=== PATIENT | female | born 1990 | race Caucasian/White ===

== ENCOUNTER 2023-05-09 08:16 | Outpatient (CLI) | payer BC, SELFPAY ==
--- NOTE | 2023-05-09 08:15 | CRLHL7_ITS ---
For Patients: As a result of the Century Cures Act, medical imaging exams and procedure reports are released immediately into your electronic medical record. You may view this report before your referring provider. If you have questions, please contact your health care provider. INDICATION: First trimester scan, establish dates. COMPARISON: None. TECHNIQUE: Real-time vizcarra-scale imaging of the pelvis was performed. FINDINGS: Sonographic imaging demonstrates a single living intrauterine gestation. The embryo demonstrates a regular cardiac rate measuring 171 beats per minute. The embryo`s crown-rump length measurement of 3.0 cm corresponds to a gestational age of 9 weeks 6 days with a sonographic due date of 12/06/2023. There is a normal-appearing yolk sac. There are no gross abnormalities noted within the embryo at this early state of development. The gestational sac has a normal appearance. There is no evidence of a perigestational hemorrhage. The amount of fluid within the sac appears appropriate for gestational age. The cervix is closed. The myometrium appears normal. The ovaries are of normal size. Corpus luteal cyst right ovary. There are no suspicious fluid collections noted in the cul-de-sac. IMPRESSION: Normal first trimester OB ultrasound exam. Gestational age calculated at 9 weeks 6 days with a sonographic due date of 12/06/2023. Dictated by Reuben Dumont MD @ 05/09/2023 10:35:18 AM (Electronically Signed)
== END 2023-05-09 08:17 | disposition home or self-care (01) ==
LOC: US 08:16
PROVIDERS: Visit Provider Physician Assistant
DX: Z34.91 Encounter for supervision of normal pregnancy, unspecified, first trimester (principal); Z3A.09 9 weeks gestation of pregnancy
CPT/HCPCS: 76817; 86592; 86703; 86704; 86706; 86762; 86787; 86803; 86850; 86900; 86901; 87086; 87340; 87491; 87591

== ENCOUNTER 2023-07-25 12:48 | Outpatient (CLI) | payer BC, SELFPAY ==
--- NOTE | 2023-07-25 13:00 | US_ITS ---
Patient: CLAIRE SEGUNDO Facility:?[facility] Patient ID:?[id number] Site Patient ID:?[id number]. Site :?[id number] Study:?US-OB Pelvis BFAS-07/25/2023 2:23:04 PM Ordering Physician:ROXIE MICHEL Final Report: INDICATION: Blighted ovum TECHNIQUE: Stretch transvaginal scanning was performed to optimally evaluate the IUP and adnexa. Ovarian blood flow was evaluated with color-flow and pulsed Doppler. COMPARISON: None. FINDINGS: An intrauterine gestational sac is demonstrated but no pole or yolk sac is demonstrated. Gestational age is 10 weeks 3 days by LMP and 7 weeks by today`s mean sac size. A 1.2 x 1.0 x 0.3 cm subchorionic hemorrhage is noted The ovaries are normal in size and shape. The right ovary measures 3.4 x 2.4 x 1.9 cm and the left 3.2 x 2.0 x 1.4 cm. Ovarian blood flow is demonstrated with color-flow and pulsed Doppler. No adnexal mass or free fluid is apparent. IMPRESSION: Blighted ovum Dictated by Oneal Shaikh MD @ 07/26/2023 6:17:36 AM ----- ADDENDUM ----- CORRECTION: The initial report belongs to a different patient and was inadvertently submitted to this patient`s chart. INDICATION: survey. TECHNIQUE: Conventional transabdominal two-dimensional grayscale ultrasound examination. COMPARISON: None. FINDINGS: There is a living fetus with gestational age of 20 weeks 6 days by LMP and 21 weeks 1 day by today`s measurements. EDC based on LMP is 12/06/2023. BPD: 5.1 cm, 21 weeks 4 days Head circumference: 18.4 cm, 20 weeks 5 days Abdominal circumference: 17.2 cm, 22 weeks 1 day Femur length: 3.4 cm, 20 weeks 4 days The weight is estimated at 419 grams, the 73rd percentile. The heart rate is measured at 144 beats per minute and the rhythm appears regular. The head and spine are grossly intact. No gross facial abnormality is evident. The upper lip is intact. Four cardiac chambers are demonstrated. The heart and stomach appear to be on the same side. The diaphragm is intact. Two kidneys and a bladder are demonstrated. The cord insertion is normal and three cord vessels are noted. Four extremities are demonstrated. The amniotic fluid volume is within normal limits. The placenta is posterior with no evidence of previa. The cervical length is normal at 4.3 cm. IMPRESSION: 1. Living fetus with gestational age of 20 weeks 6 days by LMP and 21 weeks 1 day by today`s measurements. EDC based on LMP is 12/06/2023. 2. No anomaly evident. Dictated by Oneal Shaikh MD @ Jul 30 2023 4:49AM Signed by:?Oneal Shaikh MD @07/26/2023 6:17:36 AM (Electronic Signature)
== END 2023-07-25 12:49 | disposition home or self-care (01) ==
LOC: US 12:49
PROVIDERS: Visit Provider Physician Assistant
DX: O20.9 Hemorrhage in early pregnancy, unspecified (principal); O02.1 Missed abortion
CPT/HCPCS: 76805

== ENCOUNTER 2023-09-15 08:26 | Outpatient (CLI) | payer BC, SELFPAY | END 2023-09-15 08:27 | disposition home or self-care (01) | LOC: NFLDREF 09-17 06:05 | PROVIDERS: Visit Provider Obstetrics & Gynecology | DX: Z34.93 Encounter for supervision of normal pregnancy, unspecified, third trimester (principal) | CPT/HCPCS: 86592 ==

== ENCOUNTER 2023-10-24 09:54 | Outpatient (CLI) | payer BC, SELFPAY | END 2023-10-24 09:55 | disposition home or self-care (01) | LOC: NFLDREF 11-17 16:18 | PROVIDERS: Visit Provider Obstetrics & Gynecology | DX: Z34.93 Encounter for supervision of normal pregnancy, unspecified, third trimester (principal) | CPT/HCPCS: 82728 ==

== ENCOUNTER 2023-11-06 08:23 | Outpatient (RCR) | payer BC, SELFPAY ==
--- NOTE | 2023-11-03 10:27 | URNOTE ---
Per Lawanda colindres [facility], prior auth is not required. Call ref#[id number]
[2023-11-06 08:33] VITALS: BP 101/67; PULSE 85; RESP 16; TEMP 37.2; O2SAT 98
[2023-11-06] MEDS: IRON DEXTRAN COMPLEX 25 MG in 0.9 % SODIUM CHLORIDE 100 ml 100 ML 402 MG IVPB (08:53)
[2023-11-06 09:10] VITALS: BP 111/72; PULSE 83; RESP 16; TEMP 37.2; O2SAT 99
[2023-11-06 09:41] VITALS: BP 96/66; PULSE 81; RESP 16; TEMP 36.8; O2SAT 98
[2023-11-06] MEDS: IRON DEXTRAN COMPLEX 975 MG in 0.9 % SODIUM CHLORIDE 250 ml 250 ML 269.5 MG IVPB (09:59)
[2023-11-06 10:56] VITALS: BP 102/66; PULSE 80; RESP 16; TEMP 37.1; O2SAT 96
[2023-11-06 11:33] VITALS: BP 103/68; PULSE 73; RESP 20; TEMP 36.4; O2SAT 98
== END 2024-05-04 23:59 | disposition home or self-care (01) ==
LOC: CCIC 08:23
PROVIDERS: PCP Physician Assistant Medical; Visit Provider Clinical Nurse Specialist
DX: D50.9 Iron deficiency anemia, unspecified (principal)
CPT/HCPCS: 96365; 96366; J1750; J7050

== ENCOUNTER 2023-11-10 10:12 | Outpatient (CLI) | payer BC, SELFPAY ==
[2023-11-11 15:44] LABS: Strep B DNA Probe Negative (Negative)
[2023-11-11 19:53] LABS: Strep B Susceptibility Needed? No
== END 2023-11-10 10:13 | disposition home or self-care (01) ==
LOC: LKVREF 10:12
PROVIDERS: PCP Physician Assistant Medical; Visit Provider Physician Assistant
DX: Z34.83 Encounter for supervision of other normal pregnancy, third trimester (principal)
CPT/HCPCS: 87081; 87653

== ENCOUNTER 2023-11-17 11:02 | Outpatient (CLI) | payer BC, SELFPAY | END 2023-11-17 11:03 | disposition home or self-care (01) | LOC: NFLDREF 11-21 18:18 | PROVIDERS: PCP Physician Assistant Medical; Referring Provider Physician Assistant Medical; Visit Provider Obstetrics & Gynecology | DX: O99.013 Anemia complicating pregnancy, third trimester (principal); Z3A.37 37 weeks gestation of pregnancy | CPT/HCPCS: 82728 ==

== ENCOUNTER 2023-12-11 06:59 | Inpatient (IN) | payer BC, SELFPAY ==
[2023-12-11] VITALS (44 sets, daily range): BP systolic 82–128; BP diastolic 52–85; PULSE 52–137; RESP 16–20; TEMP 36.5–36.9; O2SAT 97–100; BMI 30.6
--- NOTE | 2023-12-11 08:07 | P.LDBA_ITS ---
Subjective History of Present Illness Time Seen by Provider: 08:07 Date Seen: 12/11/23 Narrative: Eden is being admitted to Labor and Delivery for induction of labor. She is a 33 year old at 40 and 5/7 weeks gestation. Her full history and physical was dictated by Dr. Chan on 11/17/2023. Please see this for details. Verbal consent obtained for artificial rupture of membranes. Specific Issues/Plans Spouse: Justus. Sons: Christ, Michael. Baby: [place] Gender #Anemia -34 weeks: 10.3mg/dL, Ferritin low at 5.5 recommend IV iron as she has not tolerated PO in the past -iron infusion 11/05/20 -Repeat hgb at 37wks 11/17/2023: 10.4 Flu: got at work 2022 Covid: declines 05/09/23 Tdap: 09/29/23 GBS: Negative Blood type: O+ contraception: Mirena IUD H&P by [facility] on 11/17/2023 OB - Problem Based A/P Additional Plan (1) Elective induction of labor planned: Status: Acute Plan 1. AROM completed at 8:00 a.m. clear fluid 2. Start Pitocin per induction protocol. 3. The patient is planning an epidural for labor analgesia. 4. GBS negative 5. Blood type: O positive OB Exam Physical Exam Vital signs: Temp Pulse BP Pulse Ox 98.1 F 88 115/65 97 12/11/23 07:22 12/11/23 07:22 12/11/23 07:22 12/11/23 07:22 Narrative: GENERAL APPEARANCE: Pleasant, , well-groomed woman in no acute distress. VITAL SIGNS: as noted in nursing notes HEAD: Normocephalic, atraumatic. THYROID: no masses, nodularity, tenderness or enlargement. LUNGS: Clear to auscultation bilaterally without wheezes, rales or rhonchi. HEART: Regular rate and rhythm with normal S1 and S2. No gallop, rub or murmur. ABDOMEN: Gravid. Soft, nontender, nondistended, with normal bowels sounds t hroughout. EFM: Baseline 140's, moderate variability. Accelerations: Present. Decelerations: absent. Reactive. Category 1. TOCO: Q7-10 minutes: patient not feeling them. PRESENTATION: Vertex by Marcell's maneuvers. SVE: 3 cm/ 50 %/ -2/soft/mid. Morales score: 6. AROM clear fluid. EXTREMITIES: No cyanosis, clubbing, or edema. No varicosities. NEUROLOGIC: Normal gait and balance. Normal deep tendon reflexes at bilateral patella 2+/2, equal without clonus. PSYCHIATRIC: alert and oriented x3. Normal speech pattern, eye contact and affect. SKIN: Warm, dry, and well perfused. Good turgor. No lesions, nodules or rashes.
[2023-12-11] MEDS: OXYTOCIN 30 unit/500 ML in NS 30 UNIT/500 ML BAG IVPB (08:49)
[2023-12-11] MEDS: LACTATED RINGERS 1000 ML 1,000 ML 125 ML IV ×3 (08:49→12:56)
[2023-12-11 08:54] LABS: Basophils Absolute Auto 0.01 K/uL (0.00-0.30); Basophils Percent Auto 0.1 % (0.0-3.0); Eosinophils Absolute Auto 0.07 K/uL (0.00-0.50); Eosinophils Percent Auto 0.8 % (0.0-7.0); Hematocrit 37.2 % (33.0-51.0); Hemoglobin* 12.3 gm/dL (12.0-16.0); Immature Granulocytes Abs Auto 0.04 K/uL (0.00-0.30); Immature Granulocytes Pct Auto 0.4 %; Lymphocytes Percent Auto 19.3 % (20-44); Mean Corpuscular HGB Conc 33 gm/dL (32-36); Mean Corpuscular Hemoglobin 29 pg (26-34); Mean Corpuscular Volume 87 fL (80-100); Monocytes Percent Auto 8.8 % (0.0-11.0); Neutrophils Absolute Auto 6.42 K/uL (1.7-7.0); Neutrophils Percent Auto 70.6 % (42.0-72.0); Platelet Count* 240 K/uL (140-440); RDW Coefficient of Variation % 16.6 % (11.5-15.5); Red Blood Count 4.29 m/uL (4.00-5.20)
[2023-12-11 08:56] LABS: Slide Review Reflex No
[2023-12-11] MEDS: ROPIVACAINE 0.2% 100 ml 100 ML 12 MG EPIDURAL (10:36)
[2023-12-11] MEDS: BUPIVACAINE 0.25% PF 10 ML 10 ML ML EPIDURAL (10:36)
--- NOTE | 2023-12-11 10:41 | PM.ANBPRC ---
[facility] Medical History Normal spontaneous vaginal delivery ?O80 - Encounter for full-term uncomplicated delivery (ICD-10) History of vaginal delivery Surgical History History of foot surgery ?Z98.890 - Other specified postprocedural states (ICD-10) Family History Aunt Uterine cancer Social History Narrative: SOCIAL HISTORY: Occupation: Dental hygienist. Marital status: . Tenriism/cultural needs: no. Chemical or radiation exposure: X-rays at work, always behind lead wall. Pre- tobacco use: no. Pre- alcohol use: no. Current tobacco use: no. Current alcohol use: no. Recreational drug use: no. Dietary restrictions: no. Blood transfusion acceptable in an emergency: yes. PSYCHOSOCIAL HISTORY: History of depression or currently depressed: No. Current for past physical, emotional, or sexual mistreatment: Denies. Problems that will make it hard to make it to appointments: Denies. What is your current living situation?: I presently have a place to live Problems where you live: no known problems In the past 12 months, utilities in danger of being shut off: no In past 12 months, lack of transportation kept you from medical appts, meetings, work, or getting things needed for daily living: no In the past 12 mos, have been you worried that your food would run out before you had money to buy more?: never true In the past 12 mos, the food you bought just didn't last and you didn't have money to buy more?: never true Smoking Status: Never smoker How often does anyone, including family, friends and others, physically hurt you: never How often does anyone, including family, friends and others, insult or talk down to you: never How often does anyone, including family, friends and others, threaten you with harm: never How often does anyone, including family, friends and others, scream or curse at you: never Little interest or pleasure in doing things: not at all Feeling down, depressed, or hopeless: not at all Meds Home Medications and Allergies Home Medications ?Medication ?Instructions ?Recorded ?Confirmed ?Type docosahexaenoic acid 200 mg 200 mg PO 05/09/23 12/08/23 History capsule ( DHA) Allergies Allergy/AdvReac Type Severity Reaction Status Date / Time shellfish derived Allergy Mild itching Verified 12/08/23 09:38 Sulfa (Sulfonamide Allergy Mild Verified 12/08/23 09:38 Antibiotics) Results Labs Labs: Laboratory Results - last 24 hr 12/11/23 08:37 WBC 9.10 RBC 4.29 Hgb 12.3 Hct 37.2 MCV 87 MCH 29 MCHC 33 RDW Coeff of Yessica 16.6 H Plt Count 240 Neut % (Auto) 70.6 Lymph % (Auto) 19.3 L [place] % (Auto) 8.8 Eos % (Auto) 0.8 Baso % (Auto) 0.1 Neut # (Auto) 6.42 Lymph # (Auto) 1.80 [place] # (Auto) 0.80 Eos # (Auto) 0.07 Baso # (Auto) 0.01 Abs Immat Gran (auto) 0.04 Imm/Tot Granulo (auto) 0.4 Blood Type O Positive Antibody Screen NEGATIVE Vital Signs Vital Signs: Last Vital Signs Temp 98.1 F 12/11/23 07:22 Pulse 68 12/11/23 10:40 BP 109/65 12/11/23 10:40 Pulse Ox 100 12/11/23 10:38 Weight: 80.876 kg Height: 162.56 cm Anesthesia Procedures Epidural Insertion Patient Location: OB Start Time: 10:20 Stop Time: 10:41 Start Date: 12/11/23 Stop Date: 12/11/23 Reason for Block: procedure for pain Patient Position: sitting Performed By: Sarmad Sapp Preanesthetic Checklist: IV checked, risks and benefits discussed, monitors and equipment checked, pre-op evaluation, timeout performed and anesthesia consent Prep: chlorhexidine gluconate Monitoring: blood pressure monitoring, continuous pulse oximetry and heart rate Approach: midline Vertebral Space: lumbar (1-5) Epidural Technique: VALERIA saline Needle Type: Tuohy needle Injection Technique: continuous catheter Needle gauge: 17 Needle Length (cm): 10 cm Needle Insertion Depth (cm): 6 Catheter Gauge: 19 Catheter Type: multi-orifice Catheter at skin depth (cm): 12 Test Dose Result: negative and lidocaine 1.5% with epinephrine 1 to 200,000
[2023-12-11] MEDS: PHENYLEPHRINE 100 MCG/ML SYRINGE IVP ×2 (11:02→11:09)
--- NOTE | 2023-12-11 11:58 | P.OBPN_ITS ---
Subjective Time Seen by Provider: 11:58 Date Seen: 12/11/23 Narrative: Subjective: Eden's comfortable with the epidural. Pitocin: 2 milliunits/minute. Vital signs: Per electronic medical record. EFM: Baseline 130s, positive accelerations, negative decelerations, moderate variability, reactive. Category 1. [place]: Contractions every 2 minutes. SVE: 8 cm/100 %/+1. Assessment: 33-year-old 3 para 2 at 40 weeks 5 days gestation undergoing induction of labor. Plan: 1. Continue Pitocin per labor induction protocol. 2. Expect vaginal delivery Objective Vital Signs: Last Vital Signs Temp 98 F 12/11/23 10:42 Pulse 67 12/11/23 11:34 Resp 16 12/11/23 11:23 BP 103/61 12/11/23 11:34 Pulse Ox 100 12/11/23 10:53
[2023-12-11] MEDS: OXYTOCIN 30 unit/500 ML in NS 30 UNIT/500 ML BAG 300 UNIT IVPB (15:40)
--- NOTE | 2023-12-11 15:51 | W.PM.VAGDEL1 ---
Procedure Delivery date: 12/11/23 Procedure Done: Global Procedure Details: Eden is a 33 year-old G 6 P 2031 now 3 admitted on 12/11/2023 at 7:30 a.m. at 40 Weeks, 5 Days gestation for elective induction of labor. AROM occurred at 8:00 a.m. on 12/11/2023 with clear fluid. Labor Analgesia: Epidural Pitocin: Yes Labor onset: 12/11/2023 at 8:00 a.m.. Complete: 12/11/2023 at 3:05 p.m.. Pushin12/11/2023 at 3:26 p.m.. heart tones during second stage were: Category 2 with late decelerations with contractions and had compression. Moderate variability between contractions. At 3:32 p.m. a viable male delivered in vertex direct OA presentation over intact perineum via spontaneous vaginal delivery. The infant was placed on maternal abdomen. Cord was clamped and cut after a 60 second delay. Nose and mouth were bulb suctioned. Infant weight pending. 8 at 1 minute and 9 at 5 minutes. Shoulder dystocia: No. Nuchal cord: No Placenta delivered spontaneously and complete at 3:42 p.m. with a 3 vessel cord. Laceration(s): None. Blood loss: 200 mL. Blood loss measurement type: Quantitative Sponge and needles counts are correct. Specimen: None Mother and infant were stable after delivery. 's name: Pending The patient is planning on bottle feeding. Events: Labor Induction Intrapartal Events: Labor Induction Delivery monitor: external FHT and external uterine Route of delivery: Laceration description: None Anesthesia type: Epidural Disposition: floor
[2023-12-11] MEDS: IBUPROFEN 600 MG TABLET PO ×2 (18:05→23:41)
[2023-12-12 03:15] VITALS: BP 106/68; PULSE 65; RESP 16; TEMP 36.6; O2SAT 98
[2023-12-12] MEDS: IBUPROFEN 600 MG TABLET PO ×2 (07:06→12:50)
[2023-12-12 07:26] LABS: Hemoglobin* 11.5 gm/dL (12.0-16.0)
[2023-12-12 08:29] VITALS: BP 106/70; PULSE 74; RESP 16; TEMP 36.9; O2SAT 96
--- NOTE | 2023-12-12 08:44 | PM.OBDSVD1 ---
DS: Providers Provider Date Seen: 12/12/23 Date of admission: 12/11/23 06:59 Primary care physician: Cora Byrnes PA-C Admitting Clinician: Karlene Chan MD Attending Physician on discharge: Brenda Peters CNM DS: Diagnosis Discharge Diagnosis (1) care and examination immediately after delivery: Status: Acute Exam Narrative: Exam Narrative: GENERAL APPEARANCE:? normal affect, alert, no distress MOOD:? appropriate CHEST:? clear to auscultation HEART:? regular rate and rhythm ABDOMEN:? soft, non-tender the uterine fundus is 1 below Umbilicus, Midline and is appropriate for the stage of recovery. PERINEUM:? mild edema of the perineum. EXTREMITIES:? normal and no edema Const: Vital Signs, click to edit/add: Vital Signs - 24 hr 12/11/23 10:13 12/11/23 10:18 12/11/23 10:23 Temperature Pulse Rate Pulse Rate [Pulse Oximeter] Respiratory Rate Blood Pressure Blood Pressure [Ri ght Arm] Pulse Oximetry 100 100 100 Oxygen Delivery [facility] 12/11/23 10:28 12/11/23 10:31 12/11/23 10:33 Temperature Pulse Rate 137 H 75 Pulse Rate [Pulse Oximeter] Respiratory Rate Blood Pressure 125/64 128/60 Blood Pressure [Ri ght Arm] Pulse Oximetry 100 100 Oxygen Delivery [facility] 12/11/23 10:34 12/11/23 10:36 12/11/23 10:38 Temperature Pulse Rate 70 68 74 Pulse Rate [Pulse Oximeter] Respiratory Rate 20 Blood Pressure 115/72 117/77 102/63 Blood Pressure [Ri ght Arm] Pulse Oximetry 100 Oxygen Delivery [facility] 12/11/23 10:40 12/11/23 10:42 12/11/23 10:43 Temperature 98 F Pulse Rate 68 Pulse Rate [Pulse Oximeter] Respiratory Rate Blood Pressure 109/65 Blood Pressure [Ri ght Arm] Pulse Oximetry 100 Oxygen Delivery [facility] 12/11/23 10:45 12/11/23 10:48 12/11/23 10:50 Temperature Pulse Rate 75 93 Pulse Rate [Pulse Oximeter] Respiratory Rate 20 Blood Pressure 104/65 99/62 Blood Pressure [Ri ght Arm] Pulse Oximetry 100 Oxygen Delivery [facility] 12/11/23 10:53 12/11/23 10:55 12/11/23 11:08 Temperature Pulse Rate 96 63 Pulse Rate [Pulse Oximeter] Respiratory Rate 16 Blood Pressure 96/60 82/52 L Blood Pressure [Ri ght Arm] Pulse Oximetry 100 Oxygen Delivery Nd thod 12/11/23 11:10 12/11/23 11:13 12/11/23 11:23 Temperature Pulse Rate 52 L 58 L 82 Pulse Rate [Pulse Oximeter] Respiratory Rate 16 Blood Pressure 99/66 109/76 104/62 Blood Pressure [Ri ght Arm] Pulse Oximetry Oxygen Delivery Nd thod 12/11/23 11:27 12/11/23 11:34 12/11/23 12:32 Temperature 98 F Pulse Rate 126 H 67 Pulse Rate [Pulse Oximeter] Respiratory Rate 20 Blood Pressure 104/52 L 103/61 Blood Pressure [Ri ght Arm] Pulse Oximetry Oxygen Delivery Nd thod 12/11/23 12:34 12/11/23 13:00 12/11/23 13:02 Temperature 97.9 F Pulse Rate 68 65 Pulse Rate [Pulse Oximeter] Respiratory Rate 20 Blood Pressure 124/85 107/59 L Blood Pressure [Ri ght Arm] [facility] 13:32 12/11/23 14:07 12/11/23 14:34 Temperature Pulse Rate 73 70 Pulse Rate [Pulse Oximeter] Respiratory Rate 16 Blood Pressure 111/67 114/62 Blood Pressure [Ri ght Arm] Pulse Oximetry Oxygen Delivery Nd thod 12/11/23 15:00 12/11/23 15:03 12/11/23 15:44 Temperature 98.2 F Pulse Rate 80 65 Pulse Rate [Pulse Oximeter] Respiratory Rate Blood Pressure 108/73 115/60 Blood Pressure [Ri ght Arm] Pulse Oximetry Oxygen Delivery Nd thod 12/11/23 15:59 12/11/23 16:14 12/11/23 16:29 Temperature Pulse Rate 65 68 63 Pulse Rate [Pulse Oximeter] Respiratory Rate Blood Pressure 101/54 L 111/60 113/63 Blood Pressure [Ri ght Arm] Pulse Oximetry Oxygen Delivery Nd thod 12/11/23 16:43 12/11/23 16:58 12/11/23 17:13 Temperature Pulse Rate 63 63 64 Pulse Rate [Pulse Oximeter] Respiratory Rate Blood Pressure 113/66 113/62 115/68 Blood Pressure [Ri ght Arm] Pulse Oximetry Oxygen Delivery Me thod 12/11/23 17:28 12/11/23 17:43 12/11/23 20:32 Temperature 98.5 F Pulse Rate 71 69 Pulse Rate [Pulse Oximeter] 69 Respiratory Rate 16 Blood Pressure 108/61 112/65 Blood Pressure [Ri ght Arm] 113/73 Pulse Oximetry 97 Oxygen Delivery Me thod Room Air 12/11/23 23:46 12/12/23 03:15 12/12/23 08:29 Temperature 97.7 F 97.8 F 98.4 F Pulse Rate Pulse Rate [Pulse Oximeter] 65 65 74 Respiratory Rate 16 16 16 Blood Pressure Blood Pressure [Ri ght Arm] 109/67 106/68 106/70 Pulse Oximetry 98 98 96 Oxygen Delivery Me thod Room Air Room Air Room Air OB - DS: Summary Hospital Course Hospital Course: Eden is a 33 y.o. G 3 P 3 who was admitted to L & D for elective induction of labor. ?She had a NVD that was uncomplicated. The patient feels well. ?The pain is well controlled with current medications. ?She has no new complaints. ?She is breast feeding and reports things are going well. the patient has done well.? Vitals have been stable.? She has remained afebrile.? Has a good appetite, is tolerating a general diet. ?She is voiding without difficulty.? She is passing gas and has not had a bowel movement.? She is ambulating and denies any dizziness.? Has small amount of rubra lochia. She is planning Mirena for prevention. Problems: condoms plan: Discharge home with baby. Follow up in 2 weeks and 6 weeks. , may see if needed Hgb 11.5. Peripartum Data delivery method: Vaginal Laceration description: None complications: none [place] Gender: Male Infant Discharge Plan: Home Status at Discharge Functional status at discharge: independent ambulation Overall status at discharge: patient is progressing back to baseline Time Spent with Patient Time attestation: Total time spent providing and/or coordinating discharge services: Time spent: Less than 30 minutes Discharge Plan Discharge Disposition: Home, Self-Care Date of Admission: 12/11/23 06:59 Attending Provider on Discharge: Brenda Peters Primary Care Provider: Cora Byrnes Condition: Stable Anticipated Discharge Date/Time: 12/12/23 16:00 Discharge Medications: New acetaminophen 500 mg Tablet 1,000 mg PO Q6H PRN (Reason: pain/fever) Qty: 0 0RF docusate sodium 100 mg Capsule 100 mg PO BID PRN (Reason: constipation) Qty: 90 0RF ibuprofen 600 mg Tablet 600 mg PO Q6H PRNQty: 60 0RF Continued DHA 200 mg capsule 200 mg PO omeprazole 40 mg capsule,delayed release(DR/EC) 40 mg PO DAILY Qty: 60 1RF Discharge Orders: Discharge Order (Routine); Ordered 12/12/23 Ordered By: Brenda Peters Patient Education: OB Over the Counter Medication Information, OB Vaginal/Breast Feeding Additional Instructions: Discharge instructions were reviewed with the patient including signs and symptoms of infection and home going medications Nothing vaginally for 6 weeks: no tampons or intercourse Off Work or School for 6 weeks 2-week visit: discuss infant feeding concerns, review control options and screen for anxiety/depression. 6-week visit for an annual exam. consultation services are available to all mothers and babies for the first year after delivery.? To make an appointment, please call [phone]. Activity Level: Activity as Tolerated Discharge Diet: Regular Follow Up Appointments: [facility] [Provider Group] Forms: [employer] Info Instructions
[2023-12-12 12:43] VITALS: BP 108/73; PULSE 65; RESP 16; TEMP 36.6; O2SAT 98
[2023-12-12] MEDS: DOCUSATE SODIUM 100 MG CAPSULE PO (12:50)
--- NOTE | 2023-12-12 13:17 | PM.ANPOST ---
Post Anesthesia Note Post Anesthesia Note Patient seen: Inpatient Respiratory Status: adequate Cardiovascular Status: adequate Mental Status: baseline Pain: adequate Temp: baseline Anesthetic awareness: N/A Complications: none Follow care: none
[2023-12-12 18:45] LABS: Rapid Plasma Reagin (RPR) Non Reactive (Non Reactive)
== END 2023-12-12 17:42 | disposition home or self-care (01) | DRG 560 ==
PROVIDERS: Admitting Provider Obstetrics & Gynecology; PCP Physician Assistant Medical; Visit Provider Obstetrics & Gynecology
DX: O99.02 Anemia complicating childbirth (principal); D64.9 Anemia, unspecified; Z3A.40 40 weeks gestation of pregnancy; Z37.0 Single live birth
CPT/HCPCS: 01967; 36415; 85018; 85025; 86592; 86850; 86900; 86901; A9270; J0665; J2371; J2795; J7120

== ENCOUNTER 2024-07-09 09:42 | Outpatient (CLI) | payer BC, SELFPAY | END 2024-07-09 09:43 | disposition home or self-care (01) | LOC: NFLDREF 09:43 | PROVIDERS: PCP Physician Assistant Medical; Visit Provider Registered Nurse | DX: L65.9 Nonscarring hair loss, unspecified (principal) | CPT/HCPCS: 84443 ==